=== PATIENT | female | born 1945 | race Caucasian/White ===

== ENCOUNTER 2016-06-01 07:46 | Day surgery (SDC) | payer MEDICARE, OTHER ==
[~2016-06-01] VITALS: Ht 167.6 cm; Wt 111.1 kg
[~2016-06-01 07:46] MED LIST: ASCO500C6 PO; ASPI-973 PO; CETI5TAB28 PO; FUR20 PO; LIDO700A33 TOPICAL; METO-274 PO; MULT-1018 PO; POTA10CA42 PO; VALS80TA25 PO
[2016-06-01] MEDS ORDERED: 0.9% Sodium Chloride 1,000 ML IV PRN (07:51)
[2016-06-01] MEDS ORDERED: Sodium Chloride LOK Flush 10 mL Syringe IV PRN (07:55)
[2016-06-01] MEDS ORDERED: fentaNYL-PF 50 mCg/mL 2 mL Inj IVPUSH PRN (07:55)
[2016-06-01 08:08] VITALS: BP 181/94; PULSE 69; RESP 14; O2SAT 98
--- NOTE | 2016-06-01 10:14 | PCM.ENDCOL ---
Colonoscopy Date of Service: Jun 01, 2016 Physician Ronaldo Johnson MD Indication for Procedure Screening Post Procedure Dx & Findings: Hemorrhoids diverticulitis Procedure Colonoscopy Prep adequate Withdrawal 13 minutes PROCEDURE IN DETAIL: After unremarkable rectal examination Olympus video colonoscope was inserted into patient's anal canal was advanced to cecum. Landmarks identified with ileocecal valve and appendiceal orifice. Scope was withdrawn systematically. Visualized colonic mucosa she will shiny mucosa was normal in vasculature. Patient had multiple diverticuli small enlarged in the sigmoid colon. There were isolated diverticuli mostly small polyp to the ascending colon. Retroflexion was done. Mild hemorrhoids noted. Anal canal was spent carefully in the way out, hemorrhoids noted. Impression Diverticuli Hemorrhoids Recommendation is Repeat colonoscopy in 10 years if there is no family or personal history of colon cancer or polyp. Presedation Assessment Risks and Benefits Informed consent was obtained from the patient after all risks and benefits including but not limited to drug reaction, infection, pain, bleeding, perforation, as well as alternatives were discussed. Patient monitoring Continuous pulse oximetry, cardiac monitoring, blood pressure monitoring, IV access, and oxygen at 2L per nasal cannula. Periprocedural Fentanyl: Fentanyl 150mcg Incrementally Midazolam: Midazolam 7mg Incrementally Complications There were no periprocedural complications identified. Post Procedure Plan Post Procedure Recommendations 1. Restrict activities today. 2. Resume normal activities in the morning. 3. Resume medications. 4. Patient informed of normal post procedure side effects as bloating, drowsiness, blood streaking in the stool. 5. average risk CRCS. If colon polyps come back as: -Hyperplastic- can repeat colonoscopy in 10 years -Tubular adenoma- repeat colonoscopy in 5 years -Tubulovillous/villous adenoma- repeat colonoscopy in 3 years -If any dysplasia- return to clinic as soon as possible 6. Please don't hesitate to call me with any questions. Ronaldo Johnson MD Jun 01, 2016 10:14
[2016-06-01 10:16] VITALS: BP 149/81; PULSE 73; RESP 16; O2SAT 96
[2016-06-01 10:26] VITALS: BP 141/71; PULSE 68; RESP 16; O2SAT 96
[2016-06-01 10:36] VITALS: BP 148/76; PULSE 67; RESP 16; O2SAT 97
== END 2016-06-01 23:59 | disposition home or self-care (01) ==
LOC: END 07:46
PROVIDERS: ATTEND Internal Medicine
DX: Z12.11 Encounter for screening for malignant neoplasm of colon (principal); K57.30 Diverticulosis of large intestine without perforation or abscess without bleeding; K64.8 Other hemorrhoids; Z79.82 Long term (current) use of aspirin; Z79.899 Other long term (current) drug therapy; Z87.891 Personal history of nicotine dependence
CPT/HCPCS: 99153; G0121; G0500; J2250; J3010; J7030